=== PATIENT | female | born 1990 | race Caucasian/White ===

== ENCOUNTER 2016-12-08 11:58 | Emergency (ER) | payer OTHER ==
[~2016-12-08] VITALS: Ht 160 cm; Wt 48.5 kg
[~2016-12-08 11:58] MED LIST: CYCLOBENZAPRINE10 MG PO; MOTRIN800 MG PO; NORTREL1 EAC2 PO; OMEPRAZOLE10 M1 PO
[2016-12-08 14:06] VITALS: BP 125/76
== END 2016-12-08 13:40 | disposition home or self-care (01) ==
LOC: EME 11:58
DX: S09.90XA Unspecified injury of head, initial encounter (principal); S01.81XA Laceration without foreign body of other part of head, initial encounter; S41.012A Laceration without foreign body of left shoulder, initial encounter; W22.8XXA Striking against or struck by other objects, initial encounter; W45.8XXA Other foreign body or object entering through skin, initial encounter; Z88.0 Allergy status to penicillin
CPT/HCPCS: 99281; 99284

== ENCOUNTER 2017-05-25 12:58 | Emergency (ER) | payer OTHER ==
[~2017-05-25] VITALS: Ht 157.5 cm; Wt 45.0 kg
[2017-05-25 13:20] LABS: HEMOGLOBIN 13.7 G/DL (11.9-15.5); MCH 31.4 PG (29.0-34.0); MCHC 33.4 G/DL (30.0-36.0); MCV 93.8 FL (83-99); PLATELET COUNT 253 K/uL (156-360); RBC DIS.WIDTH-CV 13.2 % (11.8-14.6); RBC DIS.WIDTH-SD 46.1 % (39-53); RED BLOOD COUNT 4.37 M/uL (3.80-5.20); WHITE BLOOD COUNT 18.9 K/uL (4.1-10.2)
[2017-05-25 13:23] LABS: APPEARANCE CLOUDY ((CLEAR)); BILIRUBIN NEGATIVE; BLOOD LARGE; COLOR AMBER ((YELLOW)); GLUCOSE (STRIP) NEGATIVE; KETONES 20; LEUKOCYTES LARGE; NITRITE POSITIVE; PROTEIN (STRIP) >=500; SPECIFIC GRAVITY 1.017 (1.000-1.030)
[2017-05-25 13:31] LABS: ALBUMIN 4.4 g/dL (3.2-4.8); CHLORIDE 103 mEq/L (99-109); SODIUM 138 mEq/L (136-147)
[2017-05-25 13:33] LABS: GLUCOSE 80 mg/dL (70-99); TOTAL PROTEIN 8.1 g/dL (6.4-8.3)
[2017-05-25 13:35] LABS: TOTAL BILIRUBIN 0.9 mg/dL (0.0-1.0)
[2017-05-25 13:37] LABS: ALKALINE PHOSPHATASE 70 IU/L (3-129); CREATININE 0.9 mg/dL (0.6-1.3); GFR ESTIMATE (CALCULATED) > 59 mL/min/
[2017-05-25 13:37] LABS: UCUL ADDED? YES; WHITE BLOOD CELLS TNTC /HPF (0-5)
[2017-05-25 13:38] LABS: UREA NITROGEN (BUN) 11 mg/dL (9-23)
[2017-05-25 13:39] LABS: AST (GOT) 16 IU/L (2-34)
[2017-05-25 13:40] LABS: ALT (GPT) 13 IU/L (3-49)
[2017-05-25 13:46] LABS: QUANTITATIVE HCG < 4.0 MIU/ML
[2017-05-25] MEDS ORDERED: TYLENOL WITH C1 EACH PO (18:13)
[2017-05-25] MEDS ORDERED: MOTRIN400 MG PO (18:13)
[2017-05-25] MEDS ORDERED: KEFLEX500 MG PO (18:13)
[2017-05-25 19:44] VITALS: BP 99/56
== END 2017-05-25 19:46 | disposition home or self-care (01) ==
LOC: EME 12:58
DX: N39.0 Urinary tract infection, site not specified (principal); G89.29 Other chronic pain; M54.9 Dorsalgia, unspecified; Z88.0 Allergy status to penicillin
CPT/HCPCS: 74177; 80053; 81003; 84702; 85027; 99281; 99285; J0696; J2270; J2405; J7030; J7040; J7050

== ENCOUNTER 2017-07-30 22:11 | Emergency (ER) | payer OTHER ==
[~2017-07-30] VITALS: Ht 160 cm; Wt 42.0 kg
[~2017-07-30 22:11] MED LIST changes: +KEFLEX500 MG PO; +MOTRIN400 MG PO; +TYLENOL WITH C1 EACH PO
[2017-07-30 23:14] LABS: BASOPHIL (%) 0.4 % (0-1); EOSINOPHIL (%) 0.7 % (0-5); EOSINOPHIL COUNT 0.1 K/uL (0-0.3); HEMATOCRIT 42.7 % (36.0-46.0); HEMOGLOBIN 14.3 G/DL (11.9-15.5); IMMATURE GRANULOCYTE (%) 0.1 % (0.0-0.7); MCH 31.2 PG (29.0-34.0); MCHC 33.5 G/DL (30.0-36.0); MONOCYTE (%) 5.4 % (3-12); MONOCYTE COUNT 0.4 K/uL (0-0.8); NEUTROPHIL (%) 79.4 % (45-76); NEUTROPHIL COUNT 5.5 K/uL (1.8-6.4); PLATELET COUNT 209 K/uL (156-360); RBC DIS.WIDTH-CV 12.8 % (11.8-14.6); RBC DIS.WIDTH-SD 43.9 % (39-53); RED BLOOD COUNT 4.59 M/uL (3.80-5.20)
[2017-07-30 23:22] LABS: ALBUMIN 4.3 g/dL (3.2-4.8)
[2017-07-30 23:23] LABS: CHLORIDE 103 mEq/L (99-109); POTASSIUM 3.5 mEq/L (3.7-5.4); SODIUM 136 mEq/L (136-147)
[2017-07-30 23:25] LABS: GLUCOSE 78 mg/dL (70-99); TOTAL PROTEIN 7.7 g/dL (6.4-8.3)
[2017-07-30 23:27] LABS: TOTAL BILIRUBIN 0.5 mg/dL (0.0-1.0)
[2017-07-30 23:28] LABS: ALKALINE PHOSPHATASE 54 IU/L (3-129)
[2017-07-30 23:29] LABS: CREATININE 0.9 mg/dL (0.6-1.3); GFR ESTIMATE (CALCULATED) > 59 mL/min/
[2017-07-30 23:30] LABS: AST (GOT) 16 IU/L (2-34); DIRECT BILIRUBIN 0.3 mg/dL (0.0-0.3); UREA NITROGEN (BUN) 9 mg/dL (9-23)
[2017-07-30 23:32] LABS: ALT (GPT) 15 IU/L (3-49); LIPASE 9 U/L (1.0-51.0)
[2017-07-30 23:40] LABS: QUANTITATIVE HCG < 4.0 MIU/ML
[2017-07-31 01:16] LABS: APPEARANCE SL.HAZY ((CLEAR)); BILIRUBIN NEGATIVE; BLOOD SMALL; COLOR YELLOW ((YELLOW)); GLUCOSE (STRIP) NEGATIVE; KETONES 80; LEUKOCYTES NEGATIVE; NITRITE NEGATIVE; PROTEIN (STRIP) NEGATIVE; SPECIFIC GRAVITY 1.055 (1.000-1.030); UROBILINOGEN 0.2 MG/DL (0.2-1.0)
[2017-07-31 01:21] LABS: BACTERIA NONE SEEN /HPF; EPITHELIAL CELLS 2+ /HPF; MUCUS TRACE /LPF; RED BLOOD CELLS 0-5 /HPF (0-5); WHITE BLOOD CELLS 0-5 /HPF (0-5)
[2017-07-31] MEDS ORDERED: ZOFRAN ODT8 MG PO (01:30)
[2017-07-31] MEDS ORDERED: BENTYL20 MG PO (01:30)
[2017-07-31 02:14] VITALS: BP 111/68
== END 2017-07-31 02:15 | disposition home or self-care (01) ==
LOC: EME 22:11
PROVIDERS: Physician Assistant
DX: R10.9 Unspecified abdominal pain (principal); R11.2 Nausea with vomiting, unspecified; R19.7 Diarrhea, unspecified; E86.0 Dehydration; Z87.440 Personal history of urinary (tract) infections; Z88.0 Allergy status to penicillin
CPT/HCPCS: 74177; 80048; 80076; 81003; 83690; 84702; 85025; 99281; 99285; J2405; J2765; J3010; J7030